=== PATIENT | female | born 1995 | race Caucasian/White ===

== ENCOUNTER 2017-12-31 04:58 | Emergency (ER) | payer OTHER ==
--- NOTE | 2017-12-31 05:03 | EDPHY ---
H & P Time Seen by Provider: 12/31/17 05:03 HPI/ROS: HPI CHIEF COMPLAINT: Hives times 24 hr HISTORY OF PRESENT ILLNESS: 22-year-old female, otherwise healthy no significant medical history does not take any medications presents emergency room with times for 24 hr. Progressively getting worse over the last 24 hr. Woke up with worsening hives and itching. No trouble breathing. Denies vomiting. Denies throat tightness. Denies trouble swallowing. No fever recent illness. She cannot think of anything that caused this. She has never had this before. Past Medical History: No significant medical history Past Surgical History: No significant surgical history Social History: Denies drugs alcohol tobacco. Family History: Noncontributory ROS REVIEW OF SYSTEMS: 10 Systems were reviewed and negative with the exception of the elements mentioned in the history of present illness. Exam Constitutional triage nursing summary reviewed, vital signs reviewed, awake/ alert. Vital signs stable. Eyes normal conjunctivae and sclera, EOMI, PERRLA. HENT normal inspection, atraumatic, moist mucus membranes, no epistaxis, neck supple/ no meningismus, no raccoon eyes. Respiratory clear to auscultation bilaterally, normal breath sounds, no respiratory distress, no wheezing. Cardiovascular rate normal, regular rhythm, no murmur, no edema, distal pulses normal. Gastrointestinal soft, non-tender, no rebound, no guarding, normal bowel sounds, no distension, no pulsatile mass. Genitourinary no CVA tenderness. Musculoskeletal no midline vertebral tenderness, full range of motion, no calf swelling, no tenderness of extremities, no meningismus, good pulses, neurovascularly intact. Skin diffuse urticaria. Hives throughout. Neurologic awake, alert and oriented x 3, AAOx3, moves all 4 extremities equally, motor intact, sensory intact, CN II-XII intact, normal cerebellar, normal vision, normal speech. Psychiatric normal mood/affect. Heme/Lymph/Immune no lymphadenopathy. Differential Diagnosis: Includes but is not limited to in a particular order allergic reaction, anaphylaxis, hives Medical Decision Making: Plan for this patient IV establishment with IV fluid bolus, IV Benadryl, IV Pepcid, IV Solu-Medrol. And re-evaluate. Re-evaluation: 0717: Patient re-evaluated this time is resting comfortably no acute distress. Is feeling better. Her urticaria and hives have not progressed. They are somewhat better. The patient is requesting be discharged home. She denies any trouble swallowing or trouble eating or trouble breathing. No oropharyngeal swelling. No vomiting. No evidence of anaphylaxis. Clinically she has hives on exam. Recommend Benadryl, Pepcid, prednisone for the next 3 days. Recommend following up with allergy. If she has worsening symptoms she knows to return to the ER. Source: Patient Constitutional: Initial Vital Signs Temperature (C) 37.8 C 12/31/17 05:04 Heart Rate 75 12/31/17 05:04 Respiratory Rate 16 12/31/17 05:04 Blood Pressure 108/71 12/31/17 05:04 O2 Sat (%) 95 12/31/17 05:04 O2 Delivery Mode Room Air Allergies/Adverse Reactions: No Known Allergies Allergy (Unverified 12/31/17 05:12) Home Medications: Medication Instructions Recorded Famotidine [Pepcid 20 MG (*)] 20 mg PO BID #6 tab 12/31/17 diphenhydrAMINE [Benadryl 25 MG 25 mg PO BID #6 tab 12/31/17 (*)] predniSONE 60 mg PO DAILY #9 tab 12/31/17 Medical Decision Making - Data Points Laboratory Results: Laboratory Results 12/31/17 05:22 12/31/17 05:22 12/31/17 12/31/17 05:22 05:22 WBC 10.81 10^3/uL H 10^3/uL (3.80-9.50) RBC 4.97 10^6/uL 10^6/uL (4.18-5.33) Hgb 13.9 g/dL g/dL (12.6-16.3) Hct 41.6 % % (38.0-47.0) MCV 83.7 fL fL (81.5-99.8) MCH 28.0 pg pg (27.9-34.1) MCHC 33.4 g/dL g/dL (32.4-36.7) RDW 14.6 % % (11.5-15.2) Plt Count 269 10^3/uL 10^3/uL (150-400) MPV 8.9 fL fL (8.7-11.7) Neut % (Auto) 78.7 % H % (39.3-74.2) Lymph % (Auto) 16.4 % % (15.0-45.0) [place] % (Auto) 4.0 % L % (4.5-13.0) Eos % (Auto) 0.4 % L % (0.6-7.6) Baso % (Auto) 0.1 % L % (0.3-1.7) Nucleat RBC Rel Count 0.0 % % (0.0-0.2) Absolute Neuts (auto) 8.52 10^3/uL H 10^3/uL (1.70-6.50) Absolute Lymphs (auto) 1.77 10^3/uL 10^3/uL (1.00-3.00) Absolute Monos (auto) 0.43 10^3/uL 10^3/uL (0.30-0.80) Absolute Eos (auto) 0.04 10^3/uL 10^3/uL (0.03-0.40) Absolute Basos (auto) 0.01 10^3/uL L 10^3/uL (0.02-0.10) Absolute Nucleated RBC 0.00 10^3/uL 10^3/uL (0-0.01) Immature Gran % 0.4 % % (0.0-1.1) Immature Gran # 0.04 10^3/uL 10^3/uL (0.00-0.10) Sodium 141 mEq/L mEq/L (135-145) Potassium 4.2 mEq/L mEq/L (3.3-5.0) Chloride 105 mEq/L mEq/L (97-110) Carbon Dioxide 24 mEq/l mEq/l (22-31) Anion Gap 12 mEq/L mEq/L (8-16) BUN 16 mg/dL mg/dL (7-23) Creatinine 0.8 mg/dL mg/dL (0.6-1.0) Estimated GFR > 60 Glucose 86 mg/dL mg/dL (70-100) Calcium 9.5 mg/dL mg/dL (8.5-10.4) Medications Given: Discontinued Medications Dexamethasone (Decadron Injection) 10 mg IVP EDNOW ONE Stop: 12/31/17 06:08 Last Admin: 12/31/17 06:16 Dose: 10 mg Diphenhydramine HCl (Benadryl Injection) 25 mg IVP EDNOW ONE Stop: 12/31/17 05:06 Last Admin: 12/31/17 05:17 Dose: 25 mg Diphenhydramine HCl (Benadryl Injection) 25 mg IVP EDNOW ONE Stop: 12/31/17 06:08 Last Admin: 12/31/17 06:16 Dose: 25 mg Famotidine (Pepcid) 20 mg IVP EDNOW ONE Stop: 12/31/17 05:06 Last Admin: 12/31/17 05:17 Dose: 20 mg Methylprednisolone Sodium (Succinate 250 mg/ Dextrose) 50 mls @ 100 mls/hr IV ONCE ONE Stop: 12/31/17 05:34 Last Admin: 12/31/17 05:42 Dose: 50 mls Sodium Chloride (Ns) 1,000 mls @ 0 mls/hr IV ONCE ONE PRN Reason: Wide Open Stop: 12/31/17 05:08 Last Admin: 12/31/17 05:17 Dose: 1,000 mls Departure - Departure Disposition: Home, Routine, Self-Care Clinical Impression: Urticaria Allergic reaction Qualifiers: Encounter type: initial encounter Qualified Code(s): T78.40XA - Allergy, unspecified, initial encounter Condition: Good Instructions: Anaphylaxis (ED), Allergy Testing (ED) Additional Instructions: 1. Prednisone as prescribed 2. Return if worsening symptoms 3. Follow up with your primary care doctor Referrals: NONE *PRIMARY CARE P,. [Primary Care Provider] - As per Instructions Prescriptions: diphenhydrAMINE [Benadryl 25 MG (*)] 25 mg PO BID #6 tab Famotidine [Pepcid 20 MG (*)] 20 mg PO BID #6 tab predniSONE 60 mg PO DAILY #9 tab
[2017-12-31] MEDS ORDERED: FAMOTIDINE 20 MG/2 ML SDV IVP ONE (05:05)
[2017-12-31] MEDS ORDERED: methylPREDNISolone SOD SUCC 250 MG in D5W 50 ML IV ONE (05:05)
[2017-12-31] MEDS ORDERED: NS 1,000 ML IV ONE (05:07)
[2017-12-31 05:31] LABS: PLATELET COUNT 269 10^3/uL (150-400)
[2017-12-31] MEDS ORDERED: DEXAMETHASONE 10 MG/ML VIAL IVP ONE (06:07)
[2017-12-31 07:01] VITALS: BP 107/77
== END 2017-12-31 07:24 | disposition home or self-care (01) ==
LOC: EDBD 04:58
DX: L50.9 Urticaria, unspecified (principal); T78.40XA Allergy, unspecified, initial encounter
CPT/HCPCS: 96365; J1100; J1200; J2930